=== PATIENT | male | born 1960 | race African-American/Black ===

== ENCOUNTER 2017-11-16 10:09 | Observation (INO) ==
--- NOTE | 2017-11-16 10:51 | ED ---
HPI General Chief Complaint: Chest Pain Stated Complaint: Chest Pain/Evac Time Seen by Provider: 11/16/17 10:23 Source: patient, EMS and old records reviewed Mode of arrival: EMS Limitations: no limitations History of Present Illness MD complaint: chest pain Complete Quality Measures for STEMI Alert Patients STEMI Alert: No Onset (ago): hour(s) (3) Duration: constant Onset: awoke with symptoms Pain location: substernal Severity scale (1-10): 7 Pain radiation: none Relieving factors: other (aspirin) Context: other (Pt believes that he has mold in his apartment causing his symptoms) Associated symptoms: dyspnea Treatments prior to arrival chest pain: aspirin Related Data Home Medications Medication Instructions Recorded Confirmed Unable to Obtain Home Meds 11/16/17 11/16/17 Allergies Allergy/AdvReac Type Severity Reaction Status Date / Time ibuprofen Allergy Intermediate Edema Unverified 11/16/17 10:27 gabapentin Allergy Edema Verified 11/16/17 10:27 hydrochlorothiazide Allergy Edema Verified 11/16/17 10:27 lisinopril Allergy Edema Verified 11/16/17 10:27 metformin AdvReac Severe ABD Unverified 12/16/16 19:15 BLEEDING Review of Systems Except as stated in HPI: all other systems reviewed are negative [facility] Medical History Medical History Diabetes (Acute) Hypertension (Acute) DAMASO on CPAP (Acute) Schizophrenia (Acute) Social History Social History Substance History: No History of Abuse Second Hand Smoke Exposure: Yes Smoking Status: Current every day smoker Tobacco Type: Cigarettes How Often Do You Have a Drink Containing Alcohol: Never Recent Travel in [facility] within the Last 8 Weeks: No Recent Out of Country Travel within the Last 8 Weeks: No Substance Abuse Detail Opiates: Substance Use Status: Active Route Used Substance Abuse: By Mouth Substance Frequency: DAILY Reason for Use: Calm Down Immunization History Tetanus Immunization: Unsure Hx Influenza Vaccine This Season: No Exam Const General: cooperative and healthy appearing [facility] Head: normocephalic and atraumatic Eyes General: appearance normal, both eyes and all related structures EOM: EOM intact bilaterally Neck Neck: full ROM and supple Chest Chest: normal inspection of the chest Resp Effort & Inspection: normal respiratory effort and able to speak in complete sentences Auscultation: clear to auscultation bilaterally Cardio Rate: regular rate Rhythm: regular rhythm Heart Sounds: S1 normal and S2 normal GI Inspection: normal to inspection Palpation: soft Back/Spine/Pelvis Cervical Spine: cervical ROM normal Thoracic/Lumbar Spine: thoraco-lumbar ROM normal Skin General: no rashes or lesions noted and turgor normal Neuro General: alert, awake, oriented x3, moves all extremities and CN's II-XI intact bilaterally Extrem General: normal to inspection and full ROM Psych Appearance: grossly normal Mental Status: mental status grossly normal Speech and Movement: pressured speech Mood: congruent mood Affect: normal affect Thought Process: normal Thought Content: normal Course Reevaluation(s) Reevaluation #1: The patient reports that he is pain-free following Nitropaste. Time: 11:42 Initial Documented Vital Signs Temperature 98.2 F 11/16/17 10:21 Pulse Rate 61 11/16/17 10:21 Respiratory Rate 19 11/16/17 10:21 Blood Pressure 196/92 H 11/16/17 10:21 Pulse Oximetry 98 11/16/17 10:21 Last Documented Vital Signs Temperature 98.2 F 11/16/17 10:21 Pulse Rate 74 11/16/17 10:25 Respiratory Rate 19 11/16/17 10:21 Blood Pressure 196/92 H 11/16/17 10:21 Pulse Oximetry 99 11/16/17 10:25 Medical Decision Making MDM Narrative Medical decision making narrative: This patient presents for the evaluation of chest pain or shortness of breath. Onset was this morning. Risk factors for coronary artery disease include hypertension, diabetes and tobacco abuse. The patient was given aspirin by EMS. I have added nitro. Cardiac evaluation is in process. I anticipate eventual admission for further evaluation. Initial laboratory evaluation and EKG do not show a STEMI. The patient will be admitted to the chest pain center for further evaluation. Medical Records Medical records reviewed: Yes I reviewed the patient's medical records. This patient has been admitted before with similar symptoms. He was ruled out by serial enzymes. Lab Data Lab results reviewed: Yes I reviewed the patient's lab results. Result diagrams: 11/16/17 10:35 11/16/17 10:35 Lab Results 11/16/17 11/16/17 Range/Units 10:35 10:35 WBC 8.3 (4.0-11.0) th/mm3 RBC 5.19 (4.50-5.90) mil/mm3 Hgb 15.2 (13.0-17.0) gm/dL Hct 45.6 (39.0-51.0) % MCV 87.9 (80.0-100.0) fL MCH 29.3 (27.0-34.0) pg MCHC 33.3 (32.0-36.0) % RDW 14.6 (11.6-17.2) % Plt Count 362 (150-450) th/mm3 MPV 9.1 (7.0-11.0) fL Neut % (Auto) 61.1 (16.0-70.0) % Lymph % (Auto) 25.9 (9.0-44.0) % Wilkinson % (Auto) 8.8 H (0.0-8.0) % Eos % (Auto) 3.6 (0.0-4.0) % Baso % (Auto) 0.6 (0.0-2.0) % Neut # (Auto) 5.0 (1.8-7.7) th/mm3 Lymph # (Auto) 2.1 (1.0-4.8) th/mm3 Wilkinson # (Auto) 0.7 (0.0-0.9) th/mm3 Eos # (Auto) 0.3 (0.0-0.4) th/mm3 Baso # (Auto) 0.1 (0.0-0.2) th/mm3 WBC Differential . Differential Comment Auto diff final Sodium 142 (136-145) meq/L Potassium 4.0 (3.5-5.1) meq/L Chloride 108 H (98-107) meq/L Carbon Dioxide 24.6 (21.0-32.0) meq/L Anion Gap 9 (5-15) meq/L BUN 10 (7-18) mg/dL Creatinine 1.03 (0.60-1.30) mg/dL Estimated GFR Greater than 89 (>89) mL/min Random Glucose 251 H (74-106) mg/dL Calcium 8.6 (8.5-10.1) mg/dL Troponin I 0.03 (0.02-0.05) ng/mL Imaging Data Radiologist's impression: Chest X-Ray 11/16/17 10:24 CONCLUSION: No acute cardiopulmonary process to explain current clinical symptoms. ECG Data EKG Prior to Arrival: Yes Attestation: I personally reviewed and interpreted this ECG as follows: (His EKG has a sinus rhythm with a rate of 61. He has upsloping of the ST segments in the anterior leads. He has inverted T waves in leads I and aVL. The STT wave changes are new compared to previous.) Prior ECG tracings: available for review Discharge Plan Discharge Disposition Patient Disposition: 30 Still Patient Discharge Details Diagnosis: Chest pain Physicians Team ED Provider: Lesley Spears Primary Care Provider: [facility] /Orders / Referrals /Forms Prescriptions: No Action Unable to Obtain Home Meds RF: 0 Discharge Instructions Patient Printed Instructions: Chest Pain (ED) Status ED Status: With Doctor
[2017-11-16 11:07] LABS: Baso # (Auto) 0.1 th/mm3 (0.0-0.2); Baso % (Auto) 0.6 % (0.0-2.0); Eos # (Auto) 0.3 th/mm3 (0.0-0.4); Eos % (Auto) 3.6 % (0.0-4.0); Hematocrit 45.6 % (39.0-51.0); Hemoglobin 15.2 gm/dL (13.0-17.0); Lymph # (Auto) 2.1 th/mm3 (1.0-4.8); Lymph % (Auto) 25.9 % (9.0-44.0); Mean Corpuscular HGB Conc 33.3 % (32.0-36.0); Mean Corpuscular Hemoglobin 29.3 pg (27.0-34.0); Mean Corpuscular Volume 87.9 fL (80.0-100.0); Mean Platelet Volume 9.1 fL (7.0-11.0); Mono # (Auto) 0.7 th/mm3 (0.0-0.9); Mono % (Auto) 8.8 % (0.0-8.0); Neut % (Auto) 61.1 % (16.0-70.0); Platelet Count 362 th/mm3 (150-450); Red Blood Count 5.19 mil/mm3 (4.50-5.90); Red Cell Distribution Width 14.6 % (11.6-17.2); White Blood Count 8.3 th/mm3 (4.0-11.0)
--- NOTE | 2017-11-16 11:26 | XR ---
EXAM DATE: 11/16/2017 10:58 AM EDT AGE/SEX: 57 years / Male INDICATIONS: Short of breath, congestion. CLINICAL DATA: This is the patient's initial encounter. Patient reports that signs and symptoms have been present for 1 day and indicates a pain score of 0/10. MEDICAL/SURGICAL HISTORY: Chronic obstructive pulmonary disease. None. COMPARISON: No prior exams available for comparison. FINDINGS: A single AP view of the chest demonstrates the lungs to be symmetrically aerated without evidence of mass, infiltrate or effusion. The cardiomediastinal contours are unremarkable. Osseous structures a re intact with some degenerative spurring of the lower dorsal and upper lumbar spine. CONCLUSION: No acute cardiopulmonary process to explain current clinical symptoms. Electronically signed by: Jorge Loera MD 11/16/2017 11:24 AM EDT
[2017-11-16 11:33] LABS: Anion Gap 9 meq/L (5-15); Blood Urea Nitrogen 10 mg/dL (7-18); Calcium 8.6 mg/dL (8.5-10.1); Carbon Dioxide 24.6 meq/L (21.0-32.0); Chloride 108 meq/L (98-107); Glomerular Filtration Rate Greater Than 89 mL/min (>89); Glucose,Random 251 mg/dL (74-106); Sodium 142 meq/L (136-145)
[2017-11-16 11:36] LABS: Troponin I 0.03 ng/mL (0.02-0.05)
[2017-11-16] MEDS ORDERED: Acetaminophen 500 MG Tablet PO PRN (12:50)
[2017-11-16] MEDS ORDERED: amLODIPine 5 MG Tablet PO ONE (12:50)
[2017-11-16] MEDS ORDERED: Dextrose 50% in Water 50 ML Vial IV.PUSH PRN (12:55)
--- NOTE | 2017-11-16 12:59 | P.HPCA ---
History of Present Illness Primary Care Physician: [facility] Chief Complaint: Chest pain and shortness of breath History of Present Illness: This is a 57-year-old male with history of hypertension, hyperlipidemia, diabetes, tobacco abuse that presents to ED with complaint of 2 weeks of intermittent central chest discomfort. Not brought on by anything particular. When it occurs it feels sharp like a knife stabbing him. Also creates shortness of breath. States he will rub the area and it would usually resolve within 3-4 minutes. States he went to [facility] 2 weeks ago for a similar discomfort and was discharged from the ED. Cannot recall prior stress testing. Upon reviewing records he was admitted in 2016 for chest pain and elevated troponin but left AGAINST MEDICAL ADVICE before any further tests were performed. 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 [facility] Currently denies chest discomfort. We are awaiting for his medication list to be completed. States he is taking all medication as instructed by his physician. Also has history of schizophrenia and states he is compliant with medication. Denies hallucinations or delusions. Denies having suicidal homicidal thoughts. Smokes about 10 cigarettes a week for the last 4 months but prior that he smoked 1 pack of cigarettes per week for 5-6 years. Has had no marijuana in 3 years. No cocaine in about 2 years. Denies alcohol consumption. Denies family history of CAD. - Diagnosis (1) Chest pain (2) Diabetes (3) Hypertension (4) Hyperlipidemia (5) Tobacco abuse (6) Obesity (7) Sleep apnea (8) Schizophrenia (9) Neuropathy Inpatient Certification: I certify that the inpatient services were ordered in accordance with Medicare regulations governing the order. This includes certification that hospital inpatient services are reasonable and necessary and in the case of services not specified as inpatient-only under 42 CFR 419.22(n), that they are appropriately provided as inpatient services in accordance to with the 2-midnight benchmark under 43 CFR 412.3(e) Review of Systems General: Patient denies fevers, chills, and recent travel. HEENT: Patient denies headache, sore throat, difficulty swallowing. Cardiovascular: Has the chest discomfort as mentioned above. Denies sensation of heart beating rapidly or irregularly. No syncope. Denies diaphoresis. Respiratory: He has had shortness of breath intermittently with the chest discomfort. Denies inspirational chest discomfort. Denies coughing wheezing or hemoptysis. GI: Patient denies nausea, vomiting, diarrhea, abdominal pain, bloody stools. Musculoskeletal: Patient denies joint pain or edema. Denies calf pain or edema. Neurovascular: Patient denies numbness, tingling, weakness in extremities. Denies headache. Endocrine: Denies polyuria and polydipsia. Hematologic: Denies easy bruising. Skin: Denies rash or itching. PMFSH - History History Provided By: Patient - Medical History Medical History: Medical History (Last Reviewed 11/16/17 @ 10:45 by Lesley Spears) Diabetes Hypertension DAMASO on CPAP Schizophrenia - Tobacco History Second Hand Smoke Exposure: Yes Tobacco Use In Past 30 Days: Yes Smoking Status: Current every day smoker Tobacco Type: Cigarettes - Alcohol History How Often Do You Have a Drink Containing Alcohol: Never - Substance Use History Substance History: No History of Abuse - Substance Use Type Opiates Status: Active Route Used: By Mouth Frequency: DAILY Reason for Use: Calm Down - Travel History Recent Travel in the [facility] Within the Last 8 Weeks: No Recent Travel Out of the Country Within the Last 8 Weeks: No - Immunization History Tetanus Immunization: Unsure Hx Influenza Vaccine This Season: No Medications and Allergies Active Medications: Active Medications Acetaminophen (Tylenol) 500 mg PO Q6H PRN PRN Reason: pain scale 1-5 Hydrocodone Bitart/Acetaminophen ([place]rith 7.5/325) 1 tab PO Q6H PRN PRN Reason: pain scale 6-10 Amlodipine Besylate (Norvasc) 5 mg PO ONCE ONE Stop: 11/16/17 12:51 Insulin Human Regular (Novolin R Supplemental Scale) 0 units SQ ACHS MYESHA; Protocol Sodium Chloride (Ns Flush) 2 ml IV.FLUSH UNSCH PRN PRN Reason: FLUSH AFTER USING IV ACCESS Sodium Chloride (Ns Flush) 2 ml IV.FLUSH BID MYESHA Sodium Chloride (Ns Flush) 2 ml IV.FLUSH PRN PRN PRN Reason: FLUSH AFTER USING IV ACCESS Allergies Allergy/AdvReac Type Severity Reaction Status Date / Time ibuprofen Allergy Intermediate Edema Unverified 11/16/17 10:27 gabapentin Allergy Edema Verified 11/16/17 10:27 hydrochlorothiazide Allergy Edema Verified 11/16/17 10:27 lisinopril Allergy Edema Verified 11/16/17 10:27 metformin AdvReac Severe ABD Unverified 12/16/16 19:15 BLEEDING Exam Vital signs: Vital Signs 11/16/17 10:21 11/16/17 10:25 11/16/17 12:00 Temperature 98.2 F Pulse Rate 61 74 58 L Respiratory Rate 19 17 Blood Pressure 196/92 H 158/69 H Pulse Oximetry 98 98 98 Intake & Output 11/15/17 11/16/17 11/16/17 18:59 06:59 18:59 Weight 140.614 kg Narrative: GENERAL: This is a well-nourished, well-developed patient, obese patient at 140 kg in no apparent distress. Patient speaks in clear complete sentences. Patient is pleasant. HEENT: Head is atraumatic and normocephalic. Neck is supple without lymphadenopathy and trachea is midline. No JVD or carotid bruits. CARDIOVASCULAR: Regular rate and rhythm without murmurs, gallops, or rubs. RESPIRATORY: Clear to auscultation. Breath sounds equal bilaterally. No wheezes , rales, or rhonchi. Chest wall is tender. No use of accessory muscles. GASTROINTESTINAL: Abdomen is nontender, nondistended. Abdomen soft. No obvious pulsatile mass or bruit. No CVA tenderness. Strong femoral pulses bilaterally. Normal bowel sounds in all quadrants. MUSCULOSKELETAL: Patient is moving upper and lower extremities freely. No calf tenderness or edema, no Homans sign. Strong pulses in upper and lower extremities. NEUROLOGICAL: Patient is alert and oriented. Cranial nerves 2-12 are grossly intact. No focal deficits and speech is clear. SKIN: No rash and turgor is normal. Results 11/16/17 10:35 11/16/17 10:35 Cardiac Enzymes 11/16/17 Range/Units 10:35 Troponin I 0.03 (0.02-0.05) ng/mL CBC 11/16/17 Range/Units 10:35 WBC 8.3 (4.0-11.0) th/mm3 RBC 5.19 (4.50-5.90) mil/mm3 Hgb 15.2 (13.0-17.0) gm/dL Hct 45.6 (39.0-51.0) % Plt Count 362 (150-450) th/mm3 Neut # (Auto) 5.0 (1.8-7.7) th/mm3 Lymph # (Auto) 2.1 (1.0-4.8) th/mm3 Todd # (Auto) 0.7 (0.0-0.9) th/mm3 Eos # (Auto) 0.3 (0.0-0.4) th/mm3 Baso # (Auto) 0.1 (0.0-0.2) th/mm3 Comprehensive Metabolic Panel 11/16/17 Range/Units 10:35 Sodium 142 (136-145) meq/L Potassium 4.0 (3.5-5.1) meq/L Chloride 108 H (98-107) meq/L Carbon Dioxide 24.6 (21.0-32.0) meq/L BUN 10 (7-18) mg/dL Creatinine 1.03 (0.60-1.30) mg/dL Calcium 8.6 (8.5-10.1) mg/dL Intake and Output 11/15/17 11/16/17 11/16/17 22:59 06:59 14:59 Other: Weight 140.614 kg Patient Weight 11/17/17 06:59 Weight 140.614 kg EKG interpretations - EKG EKG shows: sinus rhythm (Initial EKG is sinus rhythm rate of [address] segment depressions or elevations. Nonspecific T-wave changes are present.) Caprini VTE Risk Assessment Caprini VTE Risk Assessment: No/Low Risk (score <= 1) Caprini Risk Assessment Model: Point Value = 1 Point Value = 2 Point Value = 3 Point Value = 5 Age 41-60 Minor surgery BMI > 25 kg/m2 Swollen legs Varicose veins or History of unexplained or recurrent spontaneous Oral contraceptives or hormone replacement Sepsis (< 1 month) Serious lung disease, including pneumonia (< 1 month) Abnormal pulmonary function Acute myocardial infarction Congestive heart failure (< 1 month) History of inflammatory bowel disease Medical patient at bed rest Age 61-74 Arthroscopic surgery Major open surgery (> 45 min) Laparoscopic surgery (> 45 min) Malignancy Confined to bed (> 72 hours) Immobilizing plaster cast Central venous access Age >= 75 History of VTE Family history of VTE Factor V Leiden Prothrombin [id number] Lupus anticoagulant Anticardiolipin antibodies Elevated serum homocysteine Heparin-induced thrombocytopenia Other congenital or acquired thrombophilia Stroke (< 1 month) Elective arthroplasty Hip, pelvis, or leg fracture Acute spinal cord injury (< 1 month) Prophylaxis Regimen: Total Risk Factor Score Risk Level Prophylaxis Regimen 0-1 Low Early ambulation 2 Moderate Order ONE of the following: *Sequential Compression Device (SCD) *Heparin 5000 units SQ BID 3-4 Higher Order ONE of the following medications: *Heparin 5000 units SQ TID *Enoxaparin/Lovenox 40 mg SQ daily (WT < 150 kg, CrCl > 30 mL/min) *Enoxaparin/Lovenox 30 mg SQ daily (WT < 150 kg, CrCl > 10-29 mL/min) *Enoxaparin/Lovenox 30 mg SQ BID (WT < 150 kg, CrCl > 30 mL/min) AND/OR *Sequential Compression Device (SCD) 5 or more Highest Order ONE of the following medications: *Heparin 5000 units SQ TID (Preferred with Epidurals) *Enoxaparin/Lovenox 40 mg SQ daily (WT < 150 kg, CrCl > 30 mL/min) *Enoxaparin/Lovenox 30 mg SQ daily (WT < 150 kg, CrCl > 10-29 mL/min) *Enoxaparin/Lovenox 30 mg SQ BID (WT < 150 kg, CrCl > 30 mL/min) AND *Sequential Compression Device (SCD) Assessment and Plan - Assessment (1) Chest pain Code(s): R07.9 - Chest pain, unspecified Status: Acute (2) Diabetes Code(s): E11.9 - Type 2 diabetes mellitus without complications Status: Acute (3) Hypertension Code(s): I10 - Essential (primary) hypertension Status: Acute (4) Hyperlipidemia Code(s): E78.5 - Hyperlipidemia, unspecified Status: Acute (5) Tobacco abuse Code(s): Z72.0 - Tobacco use Status: Acute (6) Obesity Code(s): E66.9 - Obesity, unspecified Status: Acute (7) Sleep apnea Code(s): G47.30 - Sleep apnea, unspecified Status: Acute (8) Schizophrenia Code(s): F20.9 - Schizophrenia, unspecified Status: Acute (9) Neuropathy Code(s): G62.9 - Polyneuropathy, unspecified Status: Acute - Plan * Chest pain: Patient has had first set of cardiac enzymes and EKGs. Will be seen by Dr. Rodriguez of cardiology in the chest pain center. Likely to have a Lexiscan. Patient would likely be discharged home if the stress test is nonischemic with instructions to follow-up with PCP. Return to ED for interval issues. * Hypertension: We are waiting list of medications to continue them. The meantime will start amlodipine. * Hyperlipidemia: Resume his medication. * Diabetes: Patient will be on sliding scale insulin coverage while in chest pain center. Resume medication at discharge when list is accurate. He should follow diabetic diet. * Tobacco abuse: Patient counseled on importance of smoking cessation. * Obesity: Patient counseled on the importance of diet, exercise, and weight loss. Patient is stable at this time. He is agreeable to this plan. (1) Chest pain Qualifiers: Chest pain type: unspecified Qualified Code(s): R07.9 - Chest pain, unspecified
[2017-11-16] MEDS ORDERED: Regadenoson Inj 0.4 MG/5 ML Syringe IV.PUSH ONE (14:54)
--- NOTE | 2017-11-16 16:02 | NM ---
EXAM DATE: 11/16/2017 3:55 PM EDT AGE/SEX: 57 years / Male INDICATIONS:Angina. . Substernal chest pain. CLINICAL DATA: This is the patient's initial encounter. Patient reports that signs and symptoms have been present for 1 day and indicates a pain score of 6/10. MEDICAL/SURGICAL HISTORY: Diabetes mellitus type II. Hypertension. Schizophrenia. None. COMPARISON: No prior exams available for comparison. DOSE: 11.0 mCi Tc 99m Myoview at rest 35.0 mCi [id number] at stress 0.4 mg Lexiscan STRESS SYMPTOMS: Dyspnea. EJECTION FRACTION: 51 % TECHNIQUE: The patient underwent pharmacologic stress with infusion of prescribed dose. Continuous ECG tracing was monitored during stress. Gated SPECT imaging was performed after stress and conventi onal SPECT imaging was performed at rest. The examination was performed on a SPECT/CT scanner, both attenuation and non-corrected datasets were reviewed. FINDINGS: Distribution: The maximum perfused segment at stress is in the septal wall. Perfusion Study: Moderately diminished apical perfusion. No definite redistribution Gated Study: Mild LV chamber dilatation. The ejection fraction is calculated at 51%. RISK CATEGORY: Intermediate (1-3 % Annual Mortality Rate) CONCLUSION: Moderate-sized fixed apical perfusion abnormality and mild LV chamber dilatation Electronically signed by: Francisco Moreira MD 11/16/2017 4:01 PM EDT
[2017-11-16] MEDS ORDERED: Insulin NovoLIN Regular Correctional Sugar Inj SQ SCH (17:00)
--- NOTE | 2017-11-16 18:54 | ECG ---
Date Performed: 11/16/2017 Time Performed: 10:20:47 PTAGE: 57 years EKG: Sinus rhythm MARKED LEFT AXIS DEVIATION MODERATE T-WAVE ABNORMALITY, CONSIDER LATERAL ISCHEMIA ABNORMAL ECG Antonio red to PREVIOUS TRACING , lateral ST changes are more prominent, consider ischemia. PREVIOUS TRA CIN04/18/2016 02.59.52 DOCTOR: Alvino Clarke Interpretating Date/Time 11/16/2017 18:52:40
--- NOTE | 2017-11-17 16:45 | TR ---
Date Performed: 11/16/2017 Time Performed: 15:06:56 DOCTOR: Britany Ayala DRUG LIST: CLINICAL HISTORY: CHEST PAIN REASON FOR TEST: CHEST PAIN REASON FOR ENDING: OBSERVATION: CONCLUSION: Lexiscan stress test was performed under standard four minute protocol. Radionuclid e was injected one minute prior to ending the test. No electrocardiographic abormalities were present to suggest ischemia. Nuclear imaging and interpretation are pending. COMMENTS:
== END 2017-11-16 18:38 | disposition home or self-care (01) ==
LOC: NEPFCDU 10:09 → NEDA 10:09 → NEPD 10:09 → NEDA 14:46 → NEPFCDU 15:51
PROVIDERS: ADMIT Internal Medicine Cardiovascular Disease; ATTEND Internal Medicine Cardiovascular Disease